=== PATIENT | female | born 1950 | race Caucasian/White ===

== ENCOUNTER 2021-04-14 22:05 | Emergency (ER) | payer MEDICARE, OTHER ==
[~2021-04-14 22:05] MED LIST: Albuterol/Ipratropium 3.0-0.5 MG/3 ML Neb Soln ONE; methylPREDNISolone Sodium Succinate 125 MG/2 ML SDV ONE
[2021-04-14] MEDS ORDERED: methylPREDNISolone Sodium Succinate 125 MG/2 ML SDV IVPUSH STA (22:20)
[2021-04-14] MEDS ORDERED: Azithromycin 500 MG Vial ONE (22:40)
[2021-04-14 22:51] LABS: BICARBONATE,ARTERIAL 23.5 mm/L (22.0-26.0); O2 DELIVERY DEVICE NASAL CANNULA; O2 SATURATION ARTERIAL 97 % (95-98); PCO2 ARTERIAL 42 mm/Hg0 (35-45); PO2 ARTERIAL 92 mm/Hg (80-100)
[2021-04-14] MEDS ORDERED: Azithromycin 500 MG in Sodium Chloride 0.9% 250 ML IV SCH (23:00)
[2021-04-14 23:07] LABS: CHLORIDE,CL 97 mEq/L (98-106); SODIUM,NA 133 mEq/L (136-145)
--- NOTE | 2021-04-14 23:11 | EDM.PDOC ---
ED HPI GENERAL MEDICAL PROBLEM - General Chief Complaint: Respiratory Problem Stated Complaint: SOB Time Seen by Provider: 04/14/21 22:15 Source of Information: Reports: Patient, Family History Limitations: Reports: Respiratory Distress - History of Present Illness INITIAL COMMENTS - FREE TEXT/NARRATIVE: Gabriela is a 70 year old female who presents to ER in respiratory distress. Has become more and more short of breath as the day as wore on. Daughter states was challenging to get her even to the car to bring her here. Did require 2 nurses to transfer her to the wheelchair. Was started on a duoNeb immediately on arrival. Daughter relates that she has been using her neb treatments and her Symbicort at home today. Relates that she does struggle more in this heat and humidity. Has history of COPD, not oxygen dependent. Did develop cold symptoms recently, no fevers but cough has been worse. Moist but minimal production. Mild sinus congestion. Patient sitting in tripod position on my arrival to the ER. Minimal appetite but daughter relates that is a norm for her. No nausea or vomiting. No diarrhea. Onset: Today, Gradual Duration: Hour(s):, Getting Worse Location: Reports: Chest Severity: Severe Improves with: Reports: None Worsens with: Reports: Movement Associated Symptoms: Reports: Cough, Loss of Appetite, Malaise, Shortness of Breath, Weakness. Denies: Confusion, Chest Pain, Fever/Chills, Nausea/Vomiting Treatments PEOPLESOFT: Reports: Breathing Treatments - Related Data Allergies Allergy/AdvReac Type Severity Reaction Status Date / Time No Known Allergies Allergy Verified 04/14/21 22:12 Home Meds: Home Meds Albuterol/Ipratropium [DuoNeb 3.0-0.5 MG/3 ML] 3 ml PO ASDIRECTED PRN 04/14/21 [History] Budesonide/Formoterol Fumarate [Symbicort 160-4.5 Mcg Inhaler] 2 puff PO BID 04/14/21 [History] Past Medical History Respiratory History: Reports: Asthma, COPD, SOB Social & Family History - Family History Family Medical History: No Pertinent Family History - Tobacco Use Tobacco Use Status *Q: Current Every Day Tobacco User Years of Tobacco use: 40 Packs/Tins Daily: 0.5 - Caffeine Use Caffeine Use: Reports: Coffee ED ROS GENERAL - Review of Systems Review Of Systems: See Below Constitutional: Reports: Malaise, Weakness, Fatigue, Decreased Appetite. Denies: Fever, Chills HEENT: Reports: Rhinitis, Sinus Problem. Denies: Ear Pain, Throat Pain, Vertigo Respiratory: Reports: Shortness of Breath, Wheezing, Cough. Denies: Sputum Cardiovascular: Denies: Chest Pain, Edema, Lightheadedness Endocrine: Reports: Fatigue GI/Abdominal: Denies: Abdominal Pain, Constipation, Diarrhea, Nausea, Vomiting : Reports: No Symptoms Musculoskeletal: Reports: No Symptoms Skin: Reports: Pallor Neurological: Reports: No Symptoms ED EXAM, GENERAL - Physical Exam Exam: See Below Exam Limited By: Respiratory Distress General Appearance: Alert, Severe Distress Eye Exam: Bilateral Eye: PERRL Ears: Normal External Exam, Normal TMs Nose: Normal Inspection, Normal Mucosa, No Blood Throat/Mouth: Normal Inspection, Normal Oropharynx Head: Normocephalic Neck: Normal Inspection, Supple, Non-Tender Respiratory/Chest: Respiratory Distress, Decreased Breath Sounds, Wheezing, Accessory Muscle Use, Prolonged Expiration Cardiovascular: Tachycardia GI/Abdominal: Normal Bowel Sounds, Soft, Non-Tender Extremities: Normal Inspection, No Pedal Edema Neurological: Alert, Oriented Skin Exam: Warm, Dry, Pallor Course - Vital Signs Last Recorded V/S: Last Vital Signs Temp 98.7 F 04/14/21 22:14 Pulse 141 H 04/14/21 22:43 Resp 30 H 04/14/21 22:43 BP 146/92 H 04/14/21 22:43 Pulse Ox 97 04/14/21 22:43 - Orders/Labs/Meds Orders: Active Orders 24 hr Category Date Time Status Respiratory Care Assess and Treatment [CONS] Stat Cons 04/14/21 22:23 Active Chest 1V Frontal [CR] Stat Exams 04/14/21 22:23 Taken C-REACTIVE PROTEIN [CHEM] Stat Lab 04/14/21 22:22 Ordered COMPREHENSIVE METABOLIC PN,CMP [CHEM] Stat Lab 04/14/21 22:22 Ordered CORONAVIRUS COVID-19 RAPID [MOLEC] Stat Lab 04/14/21 22:47 Ordered D-DIMER QUANTITATIVE [COAG] Stat Lab 04/14/21 22:23 Ordered Azithromycin [Zithromax] 500 mg Med 04/14/21 23:00 Active Sodium Chloride 0.9% [Normal Saline (AdvBag)] 250 ml IV Q24H EKG 12 Lead [EK] Stat Ther 04/14/21 22:50 Ordered Medication Orders Azithromycin 500 mg/ Sodium (Chloride) 250 mls @ 250 mls/hr IV Q24H [facility] Labs: Laboratory Tests 04/14/21 04/14/21 Range/Units 22:22 22:50 WBC 12.8 H (4.0-11.0) 10^3/uL RBC 4.39 (4.00-5.50) x10^6/uL Hgb 12.4 (12.0-16.0) g/dL Hct 38.3 (37.0-47.0) % MCV 87.2 (83.0-97.0) fL MCH 28.2 (27.0-32.0) pg MCHC 32.4 (32.0-36.0) g/dL RDW Coeff of Jae 14.1 (11.0-15.0) % Plt Count 306 (150-400) 10^3/uL Immature Gran % (Auto) 0.2 (0.0-4.9) % Neut % (Auto) 83.5 H (41-71) % Lymph % (Auto) 7.3 L (24-44) % [place] % (Auto) 7.4 (0-10) % Eos % (Auto) 1.4 (0-6) % Baso % (Auto) 0.2 (0-1) % Neut # (Auto) 10.71 H (1.80-8.00) x10^3/uL Lymph # (Auto) 0.93 (0.60-5.00) 10^3/uL [place] # (Auto) 0.95 (0.00-1.50) 10^3/uL Eos # (Auto) 0.18 (0.00-1.50) 10^3/uL Baso # (Auto) 0.03 (0.00-0.50) 10^3/uL Immature Gran # (Auto) 0.02 (0.00-0.49) 10^3/uL ABG pH 7.35 (7.35-7.45) ABG pCO2 42 (35-45) mm/Hg0 ABG pO2 92 (80-100) mm/Hg ABG HCO3 23.5 (22.0-26.0) mm/L ABG O2 Saturation 97 (95-98) % ABG Base Excess -2.0 (-2.0-3.0) O2 Delivery Device Nasal cannula Oxygen Flow Rate 4.0 Meds: Medications Generic Name Dose Route Start Last Admin Trade Name Freq PRN Reason Stop Dose Admin Azithromycin 500 mg/ Sodium 250 mls @ 250 mls/hr 04/14/21 23:00 Chloride IV Q24H NEGRO Discontinued Medications Generic Name Dose Route Start Last Admin Trade Name Freq PRN Reason Stop Dose Admin Albuterol/Ipratropium Confirm 04/14/21 21:48 04/14/21 22:21 Albuterol/Ipratropium 3.0-0.5 Mg/3 Ml Neb Soln Administered 04/14/21 21:49 9 ml Dose Administration 9 ml .ROUTE .STK-MED ONE Azithromycin Confirm 04/14/21 22:40 Azithromycin 500 Mg Vial Administered 04/14/21 22:41 Dose 500 mg .ROUTE .STK-MED ONE Methylprednisolone Sodium Succinate 125 mg 04/14/21 22:20 04/14/21 22:23 Methylprednisolone Sodium Succinate 125 Mg/2 Ml Sdv IVPUSH 04/14/21 22:21 125 mg NOW STA Administration Methylprednisolone Sodium Succinate Confirm 04/14/21 21:58 Methylprednisolone Sodium Succinate 125 Mg/2 Ml Sdv Administered 04/14/21 21:59 Dose 125 mg .ROUTE .STK-MED ONE - Re-Assessments/Exams Free Text/Narrative Re-Assessment/Exam: 04/14/21 23:31 patient given 3 nebulizer treatments on arrival. Sitting in tripod position. Respirations 36-40. Solu Medrol IV given. Code level discussed at length with patient and daughter. would like to be considered Code 1 but does not want to be kept alive on the ventilator. 2345-Did contact [facility] and spoke with Dr. Frost in ER. Given status of patient. No results yet from labs. Chest xray being done. Rocephin and Zithromax then ordered. EKG shows sinus tachycardia. Willing to agree patient in transfer. Risks and benefits of transfer discussed with patient and daughter. Risks of transfer include worsening status, vehicle crash or possible . Benefits of transfer include intensive care as needed, pulmonary consult. Risks of non transfer include worsening status and possible . Benefits of non transfer include care close to home. Willing to accept transfer. 2330-Patient showing good improvement. Able to sit upright. Chest xray shows hyperinflation, no obvious pneumothorax. labs essentially unremarkable. Respiratory rate 24. Oxygen sat 97%. Blood pressure improved, color improved. Covid negative. Departure - Departure Time of Disposition: 23:36 Disposition: DC/Tfer to Acute Hospital 02 Condition: Fair Clinical Impression: Respiratory distress, COPD exacerbation - Discharge Information *PRESCRIPTION DRUG MONITORING PROGRAM REVIEWED*: No *COPY OF PRESCRIPTION DRUG MONITORING REPORT IN PATIENT TERENCE: No Additional Instructions: Transfer ALS to [facility] Dr. Frost Sepsis Event Note (ED) - Evaluation Sepsis Screening Result: No Definite Risk - Focused Exam Vital Signs: Vital Signs Temp Pulse Resp BP Pulse Ox 04/14/21 22:43 141 H 30 H 146/92 H 97 04/14/21 22:24 124 H 38 H 98 04/14/21 22:14 98.7 F 120 H 25 H 147/94 H 85 L - My Orders Last 24 Hours: My Active Orders 04/14/21 22:22 C-REACTIVE PROTEIN [CHEM] Stat COMPREHENSIVE METABOLIC PN,CMP [CHEM] Stat 04/14/21 22:23 Respiratory Care Assess and Treatment [CONS] Stat Chest 1V Frontal [CR] Stat D-DIMER QUANTITATIVE [COAG] Stat 04/14/21 22:47 CORONAVIRUS COVID-19 RAPID [MOLEC] Stat 04/14/21 22:50 EKG 12 Lead [EK] Stat 04/14/21 23:00 Azithromycin [Zithromax] 500 mg Sodium Chloride 0.9% [Normal Saline (AdvBag)] 250 ml IV Q24H - Assessment/Plan Last 24 Hours: My Active Orders 04/14/21 22:22 C-REACTIVE PROTEIN [CHEM] Stat COMPREHENSIVE METABOLIC PN,CMP [CHEM] Stat 04/14/21 22:23 Respiratory Care Assess and Treatment [CONS] Stat Chest 1V Frontal [CR] Stat D-DIMER QUANTITATIVE [COAG] Stat 04/14/21 22:47 CORONAVIRUS COVID-19 RAPID [MOLEC] Stat 04/14/21 22:50 EKG 12 Lead [EK] Stat 04/14/21 23:00 Azithromycin [Zithromax] 500 mg Sodium Chloride 0.9% [Normal Saline (AdvBag)] 250 ml IV Q24H
[2021-04-14] MEDS ORDERED: cefTRIAXone 1 GM Vial IVPUSH ONE (23:13)
== END 2021-04-14 23:47 ==
LOC: CC.ED 22:05
DX: J44.1 Chronic obstructive pulmonary disease with (acute) exacerbation (principal); Z72.0 Tobacco use; Z20.822 Contact with and (suspected) exposure to COVID-19
CPT/HCPCS: 36415; 36600; 71045; 80053; 82803; 85025; 85379; 86140; 93005; 93010; 94640; 96365; 96375; 99283; 99285-25; J0456; J0696; J2930; J7050; J7620-GY; U0002

== ENCOUNTER → 2024-06-16 | Day surgery (SDC) | payer MEDICARE, OTHER ==
[~2024-06-16] MED LIST changes: -Albuterol/Ipratropium 3.0-0.5 MG/3 ML Neb Soln ONE; +Brimonidine 0.2% Ophth Soln 5 ML Bottle EYERT SCH; +Cyclopentolate 1% Opth Soln 2 ML Bottle EYERT SCH; +Lactated Ringers 1,000 ML IV SCH; +Lidocaine 1% PF 2 ML SDV INJECT SCH; +MOXIFLOXACIN PF in BSS 1 MG/ML VIAL IO SCH; +Midazolam 1 MG/ML 2 ML SDV ONE; +Phenylephrine 2.5% Ophth Soln 2 ML Bot EYERT SCH; +Phenyleprhine/Ketorolac 4 ML Vial OP SCH; +Povidone-Iodine 5% Sterile Ophth Soln 30 ML Bottle EYERT SCH; +Tetracaine HCl/PF 0.5% 4 ML Bottle EYERT SCH; +Tropicamide 1% Ophth Soln 3 ML Bottle EYERT SCH; +acetaZOLAMIDE 500 MG Cap.ER PO SCH; -methylPREDNISolone Sodium Succinate 125 MG/2 ML SDV ONE
[2024-06-16] MEDS: Phenylephrine 2.5% Ophth Soln 2 ML Bot EYERT SCH (07:30)
[2024-06-16] MEDS: Tropicamide 1% Ophth Soln 3 ML Bottle EYERT SCH (07:32)
[2024-06-16] MEDS: Cyclopentolate 1% Opth Soln 2 ML Bottle EYERT SCH (07:32)
[2024-06-16] MEDS: Povidone-Iodine 5% Sterile Ophth Soln 30 ML Bottle EYERT SCH (08:18)
[2024-06-16] MEDS: Tetracaine HCl/PF 0.5% 4 ML Bottle EYERT SCH (08:18)
[2024-06-16] MEDS: Phenyleprhine/Ketorolac 4 ML Vial OP SCH (08:18)
[2024-06-16] MEDS: MOXIFLOXACIN PF in BSS 1 MG/ML VIAL IO SCH (08:18)
[2024-06-16] MEDS: Lidocaine 1% PF 2 ML SDV INJECT SCH (08:18)
[2024-06-16] MEDS: Brimonidine 0.2% Ophth Soln 5 ML Bottle EYERT SCH (08:18)
[2024-06-16] MEDS: acetaZOLAMIDE 500 MG Cap.ER PO SCH (09:00)
[2024-06-16 09:35] VITALS: BP 103/51; PULSE 97
== END ==
LOC: CC.SDS 07:05
PROVIDERS: ATTEND Ophthalmology
DX: H26.8 Other specified cataract (principal)
CPT/HCPCS: A9270-GY; J1097; J2250; J3490; V2632

== ENCOUNTER 2024-07-21 08:17 | Day surgery (SDC) | payer MEDICARE, OTHER ==
[2024-07-21] MEDS ORDERED: Sodium Chloride 0.9% 10 ML Syringe FLUSH PRN (08:45)
[2024-07-21] MEDS: Cyclopentolate 1% Opth Soln 2 ML Bottle EYELF SCH (09:28)
[2024-07-21] MEDS: Phenylephrine 2.5% Ophth Soln 2 ML Bot EYELF SCH (09:29)
[2024-07-21] MEDS: Tropicamide 1% Ophth Soln 3 ML Bottle EYELF SCH (09:30)
[2024-07-21] MEDS ORDERED: Midazolam 1 MG/ML 2 ML SDV ONE (09:42)
[2024-07-21] MEDS: Lidocaine 1% PF 2 ML SDV INJECT SCH (09:53)
[2024-07-21] MEDS: Phenyleprhine/Ketorolac 4 ML Vial OP SCH (09:53)
[2024-07-21] MEDS: Tetracaine HCl/PF 0.5% 4 ML Bottle EYELF SCH (09:53)
[2024-07-21] MEDS: Povidone-Iodine 5% Sterile Ophth Soln 30 ML Bottle EYELF SCH (09:53)
[2024-07-21] MEDS: Brimonidine 0.2% Ophth Soln 5 ML Bottle EYELF SCH (09:53)
[2024-07-21] MEDS: MOXIFLOXACIN PF in BSS 1 MG/ML VIAL IO SCH (09:53)
[2024-07-21] MEDS: acetaZOLAMIDE 500 MG Cap.ER PO SCH (10:32)
== END 2024-07-21 10:55 | disposition home or self-care (01) ==
LOC: CC.SDS 08:17
PROVIDERS: ATTEND Ophthalmology
DX: H26.8 Other specified cataract (principal); H57.03 Miosis; J44.9 Chronic obstructive pulmonary disease, unspecified; I48.91 Unspecified atrial fibrillation; Z79.01 Long term (current) use of anticoagulants; Z79.899 Other long term (current) drug therapy
CPT/HCPCS: 00142; 99100; A9270-GY; J1097; J2250; J3490; V2632